=== PATIENT | female | born 2000 | race Caucasian/White ===

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

== ENCOUNTER 2019-09-15 11:28 | Emergency (ER) | payer OTHER ==
[~2019-09-15] VITALS: Ht 172.7 cm; Wt 68.2 kg
[2019-09-15 11:34] VITALS: TEMP 98.3
[2019-09-15] MEDS ORDERED: PREDNISONE20 MG PO (13:46)
[2019-09-15] MEDS ORDERED: PROVENTIL0.09 MG/A1 IH (13:47)
[2019-09-15] MEDS ORDERED: NORA-BE0.35 MG PO (13:48)
[2019-09-15 14:35] VITALS: BP 115/77; PULSE 76
== END 2019-09-15 14:35 | disposition home or self-care (01) ==
LOC: COL.ER 11:28
DX: U07.1 COVID-19 (principal)
CPT/HCPCS: J1100